=== PATIENT | male | born 1990 | race Caucasian/White ===

== ENCOUNTER 2018-08-19 11:01 | Emergency (ER) | payer MEDICAID, SELFPAY ==
[2018-08-19 11:02] VITALS: BP 138/72; PULSE 96; RESP 16; TEMP 36.5; O2SAT 98; BMI 24.6
[2018-08-19] MEDS: Ondansetron 4 MG/2 ML Vial IV (12:24)
[2018-08-19] MEDS: 0.9% Normal Saline 1,000 ML 1000 ML IV (12:24)
[2018-08-19 13:12] VITALS: BP 121/75; BP 132/82; BP 133/92; PULSE 83; PULSE 89; PULSE 91
--- NOTE | 2018-08-19 15:13 | ED.VISSUMM ---
- ER Visit Summary Date of Service: 08/19/18 Chief Complaint: Numerous symptoms consistent with viral illness History of Present Illness: The patient is a 28 M who presents with feeling foggy, sore throat, abdominal pain with nausea, vomiting diarrhea. He also reports thirst, dry mouth orthostatic symptoms. He denies hematemesis, no hematochezia. Children were ill 1 week ago. He denied fever or chills. He denies ocular, visual auditory symptoms. He denied cardiac respiratory symptoms. He does report decreased urine output. He does complain of myalgias and arthralgias. He also reports generalized weakness. Review of systems otherwise negative. Physical Examination: Patient appears ill but not toxic. Head is atraumatic normocephalic. Pupils are equal round reactive. Extraocular muscles are intact. TMs are pearly white with landmarks noted. Nares patent with no drainage. Posterior pharynx without erythema or exudate. Uvula is midline. Mucosa is dry. There is no dysphonia or dysphasia. Trachea is midline. There is no stridor with auscultation of the neck. Heart is regular without murmur, gallop or rub. S1 and S2 are normal. Lungs are clear to auscultation with good movement of air bilaterally. Abdomen is soft mild tenderness with slight tympany increased bowel sounds. No evidence of umbilical or inguinal hernia. No CVA tenderness noted. Neuro exam is nonfocal. Test Results: None Emergency Department Course and Treatment: IV Zofran and 2 L of normal saline wide open. Patient has passed p.o. challenge. He was observed in the emergency department 4 hours. He was reassessed 3 times during his 4-hour stay. He no longer appears pale and is smiling. Treatment Plan: Prescription for Zofran, Bentyl and patient was encouraged to take Imodium if he continues to have diarrhea. Disposition: Discharged home in stable improved condition Impression: 1. Viral illness 2. Abdominal pain with nausea, vomiting diarrhea 3. Moderate dehydration, mild This note was generated with Webymaster dictation software. It may contain incorrect words, spelling, and punctuation that were not noted in review of the chart prior to signing ED Disposition - Plan for ED Patient: Disposition: Home or Assisted Living Chief Complaint: Fatigue Instructions: ED Gastroenteritis Viral Referrals: Care Physician,No Primary [Primary Care Provider] - Tucker Kraft MD [STAFF PHYSICIAN] - 3-5 Days if not improving
--- NOTE | 2018-08-19 15:16 | ED.DCSUM_ITS ---
- ER Visit Summary Date of Service: 08/19/18 Chief Complaint: Numerous symptoms consistent with viral illness History of Present Illness: The patient is a 28 M who presents with feeling foggy, sore throat, abdominal pain with nausea, vomiting diarrhea. He also reports thirst, dry mouth orthostatic symptoms. He denies hematemesis, no hematochezia. Children were ill 1 week ago. He denied fever or chills. He denies ocular, visual auditory symptoms. He denied cardiac respiratory symptoms. He does report decreased urine output. He does complain of myalgias and arthralgias. He also reports generalized weakness. Review of systems otherwise negative. Physical Examination: Patient appears ill but not toxic. Head is atraumatic normocephalic. Pupils are equal round reactive. Extraocular muscles are intact. TMs are pearly white with landmarks noted. Nares patent with no drainage. Posterior pharynx without erythema or exudate. Uvula is midline. Mucosa is dry. There is no dysphonia or dysphasia. Trachea is midline. There is no stridor with auscultation of the neck. Heart is regular without murmur, gallop or rub. S1 and S2 are normal. Lungs are clear to auscultation with good movement of air bilaterally. Abdomen is soft mild tenderness with slight tympany increased bowel sounds. No evidence of umbilical or inguinal hernia. No CVA tenderness noted. Neuro exam is nonfocal. Test Results: None Emergency Department Course and Treatment: IV Zofran and 2 L of normal saline wide open. Patient has passed p.o. challenge. He was observed in the emergency department 4 hours. He was reassessed 3 times during his 4-hour stay. He no longer appears pale and is smiling. Treatment Plan: Prescription for Zofran, Bentyl and patient was encouraged to take Imodium if he continues to have diarrhea. Disposition: Discharged home in stable improved condition Impression: 1. Viral illness 2. Abdominal pain with nausea, vomiting diarrhea 3. Moderate dehydration, mild This note was generated with LoggedIn dictation software. It may contain incorrect words, spelling, and punctuation that were not noted in review of the chart pr ior to signing ED Disposition - Plan for ED Patient: Disposition: Home or Assisted Living Chief Complaint: Fatigue Instructions: ED Gastroenteritis Viral Referrals: Care Physician,No Primary [Primary Care Provider] - Tucker Kraft MD [STAFF PHYSICIAN] - 3-5 Days if not improving
[2018-08-19 15:29] VITALS: BP 128/78; PULSE 78; RESP 16; O2SAT 99
== END 2018-08-19 15:30 | disposition home or self-care (01) ==
PROVIDERS: Emergency Provider Emergency Medicine
DX: B34.9 Viral infection, unspecified (principal); R10.9 Unspecified abdominal pain; R11.2 Nausea with vomiting, unspecified; R19.7 Diarrhea, unspecified; E86.0 Dehydration; J02.9 Acute pharyngitis, unspecified
CPT/HCPCS: 96361; 96374; 99284; J7030; A4216; J2405

== ENCOUNTER 2020-10-14 18:46 | Emergency (ER) | payer MEDICAID, SELFPAY ==
[2020-10-14 18:48] VITALS: BP 105/75; PULSE 88; RESP 18; TEMP 36.1; O2SAT 97; BMI 26.9
--- NOTE | 2020-10-14 18:54 | RAD_ITS ---
EXAM: XR RIGHT WRIST COMPLETE, 3 OR MORE VIEWS CLINICAL INDICATION: PAIN TO NAVICULAR AREA INTO THUMB S/P FALL ON ICE TECHNIQUE: Frontal, lateral and oblique views of the right wrist. This report was created using Simple[employer]ach report DeepDyve technology. COMPARISON: None. FINDINGS: BONES/JOINTS: Unremarkable. No acute fracture. No subluxation. Normal alignment. Preservation of the joint space. No sclerotic or destructive changes observed. SOFT TISSUES: Unremarkable. No soft tissue swelling or gas. No radiopaque foreign body. RAD/Wrist min 3 Views IMPRESSION: No demonstrated fracture. If pain persists, recommend follow-up exam in 7-10 days. Electronically Signed: Sinan Mcdonough MD ([place]) at 19:18 EST , Service support ,
--- NOTE | 2020-10-14 20:49 | ED.DCSUM_ITS ---
- ER Visit Summary Date of Service: 10/14/20 Chief Complaint: Fall History of Present Illness: The patient is a 30 M who presents after a fall that occurred yesterday. Patient states he slipped on the ice and fell. Patient states he landed on his left side but put his right wrist out to catch himself. Patient states the pain is worse over the right wrist. Patient states the pain is sharp with movement. Patient states the pain is better at rest. Patient does admit to some mild tingling in the tips of his fingers. Patient denies any weakness or loss of function. Patient denies any head injury or loss of consciousness. Physical Examination: Vital signs are stable. Patient is afebrile. Patient is in no acute distress. Musculoskeletal exam reveals tenderness over the radial aspect of the right wrist. There is no deformity noted. There is no edema or ecchymosis. Range of motion was limited in all motions of the right wrist secondary to pain. There is tenderness over the anatomical snuffbox. There is tenderness with axial loading of the thumb. Radial pulses are equal bilaterally. Sensation was intact to light touch in all digits. Capillary refill was less than 2 seconds in all digits. Test Results: X-rays of the right wrist were obtained. There are 3 views. On my interpretation, there is no acute fracture. There is no dislocation. There is some mild soft tissue swelling. Radiologist also interpreted the x-rays and agrees. Emergency Department Course and Treatment: Because of the tenderness over the anatomic snuffbox, patient was placed in a well-padded custom made thumb spica s plint. This was applied by myself. Neurovascular exam was intact after placement of the splint. Patient was advised to follow-up with his primary care physician in 5 to 7 days. Patient was advised that there could be an occult scaphoid fracture if he is still having pain in the area on reevaluation. He may need to have a repeat x-ray. Patient understood and was agreeable with the plan. All questions were answered. Disposition: Discharge home Impression: 1. Right wrist sprain This note was generated with Optensityation software. It may contain incorrect words, spelling, and punctuation that were not noted in review of the chart prior to signing ED Disposition - Plan for ED Patient: Disposition: Home or Assisted Living Diagnosis: Right wrist sprain Instructions: ED Wrist Sprain Referrals: Aiden Storm DO [STAFF PHYSICIAN] - 5-7 Days Additional Instructions: If your pain does not improve by the time you follow-up with the primary care physician, a repeat x-ray may be need to be done at that time to look for occult fracture.
[2020-10-14 21:49] VITALS: BP 115/75; PULSE 78; RESP 17; TEMP 36.9; O2SAT 98
== END 2020-10-14 21:50 | disposition home or self-care (01) ==
PROVIDERS: Emergency Provider Emergency Medicine
DX: S63.501A Unspecified sprain of right wrist, initial encounter (principal); W00.0XXA Fall on same level due to ice and snow, initial encounter; Y93.9 Activity, unspecified; Y92.9 Unspecified place or not applicable; Y99.9 Unspecified external cause status; Z72.0 Tobacco use
CPT/HCPCS: 73110; 99282

== ENCOUNTER 2021-03-02 21:31 | Emergency (ER) | payer MEDICAID, SELFPAY ==
[2021-03-02 21:32] VITALS: BP 140/73; PULSE 105; RESP 12; TEMP 36.6; O2SAT 98; BMI 27.4
[2021-03-02] MEDS: Lidocaine 1% (20 ml mdv) 20 ML Vial INFILT (22:14)
--- NOTE | 2021-03-02 22:33 | EX.ED.GENINJ ---
HPI History of Present Illness Chief Complaint: Laceration Informant: patient Narrative Narrative: Patient sustained lacerations to the left index and long finger while sharpening a knife. He notes no loss of function. He had difficulty controlling bleeding. Tetanus up-to-date Tetanus Immunization: <5 years PFSH PFSH no medical history Home Medications NK 08/19/18 [History Last Taken Unknown] Allergy/AdvReac Type Severity Reaction Status Date / Time No Known Allergies Allergy Verified 03/02/21 21:32 Social History (Updated 03/02/21 @ 22:[address] Srinivasa Kaufman, DO) Smoking Status: Former smoker substance use type: does not use ROS ROS ED Constitutional Constitutional ED: Denies chills or weight loss Eyes Eyes: Denies change in vision or diplopia ENT ENT ED: Denies ear pain, rhinorrhea or sore throat Cardiovascular Cardiovascular: Denies chest pain, orthopnea, palpitations or racing heartbeat Respiratory/Chest Respiratory/Chest: Denies cough, dyspnea or orthopnea Gastrointestinal Gastrointestinal: Denies abdominal pain, diarrhea, nausea or vomiting Genitourinary Genitourinary ED: Denies dysuria, hematuria or urinary frequency Musculoskeletal Musculoskeletal: Denies arthralgias or myalgias Integumentary Reports other Details: See HPI ; Denies abscess or rash Neurologic Neurologic: Denies headache(s) or weakness Psychiatric Psychiatric: Denies anxiety, depression, suicidal ideation or suicidal thoughts Endocrine Endocrinology: Denies polydipsia, polyphagia or polyuria Allergic/Immunologic Allergic/Immunologic ED: Denies mouth swelling, tongue swelling or urticaria EXAM Physical Exam Const Vital Signs: 03/02/21 21:32 Temperature 98 F Temperature Source Temporal Pulse Rate 105 H Respiratory Rate 12 Blood Pressure 140/73 H Blood Pressure Mean 95 Pulse Ox 98 Oxygen Delivery Method Room Air Positive well nourished and well developed General Appearance ED: well developed HEENT Reports normocephalic, head/scalp atraumatic and moist mucous membranes Eyes PERRL and EOMs intact bilaterally Neck no lymphadenopathy, supple and no JVD Resp normal respiratory effort and clear to auscultation bilaterally Cardio regular rate, regular rhythm and no murmurs GI normal to inspection, nondistended, normoactive bowel sounds and non-tender Palpation: soft Back/Spine no CVA tenderness and normal ROM Extremity full ROM General Extremety ED: Negative for edema General Extremity: Negative for edema Neuro oriented x3 and CN's II-XII intact bilaterally Sensorium / Orientation: alert Motor Exam: strength 5/5 throughout Psych mental status grossly normal Mood & Affect: Negative for depressed or tearful Skin no rashes or lesions noted Skin Narrative: There is a 1 cm and 0.5 cm laceration over the left index and middle finger PIP joints respectively. Mild venous bleeding. No obvious tendon injuries MDM MDM MDM Narrative Medical decision making narrative: Wounds were locally anesthetized using 1% lidocaine. Wound was washed with Shur-Clens and explored. The index finger was closed using a total of 3 simple erupted 4-0 Ethilon sutures. The long finger was closed using a total of 2 simple erupted 4-0 Ethilon sutures. Wound care discussed with patient. Stitches will need to be removed in 7 to 10 days Discharge Plan Triage Chief Complaint: Laceration ED Provider: Srinivasa Kaufman Dx/Rx/DC Orders Clinical Impression: Finger laceration Instructions: ED Laceration, Hand: All Closures Prescriptions: No Action NK RF: 0 Primary Care Provider: Care Physician,No Primary Referrals: Care Physician,No Primary [Primary Care Provider] - Clinic,NOW [NON-STAFF] - 7 Days for suture removal Disposition Disposition: Home, Self Care
== END 2021-03-02 22:51 | disposition home or self-care (01) ==
LOC: ED 22:47
PROVIDERS: Emergency Provider Emergency Medicine
DX: S61.211A Laceration without foreign body of left index finger without damage to nail, initial encounter (principal); S61.213A Laceration without foreign body of left middle finger without damage to nail, initial encounter; W26.0XXA Contact with knife, initial encounter; Y93.89 Activity, other specified; Y92.9 Unspecified place or not applicable; Y99.9 Unspecified external cause status; Z87.891 Personal history of nicotine dependence
CPT/HCPCS: 12001; 99283